=== PATIENT | male | born 1945 | race Caucasian/White ===

== ENCOUNTER 2018-09-14 09:37 | Emergency (ER) | payer MEDICARE, BC ==
--- NOTE | 2018-09-14 10:13 | EDM.PDOC ---
ED HPI GENERAL MEDICAL PROBLEM - General Time Seen by Provider: 09/14/18 10:00 Source of Information: Reports: Patient History Limitations: Reports: No Limitations - History of Present Illness INITIAL COMMENTS - FREE TEXT/NARRATIVE: Pt is a 72 year old male with PMH of diabetes, presenting to emergency room with c/o right elbow pain and swelling. According to patient he claims that he started having pain in the posterior aspect of the right elbow 2 days ago. the pain was constant dull achy type when it started,also he had noticed some swelling of the elbow. Today he claims that his elbow is flexed and cannot straighten it and cannot rotate his forearm or use his right hand because any activity causes pain in his elbow. He claims that he has history of gout, but does not take any medications. Pt is from [place] here on fishing trip. Onset: Gradual Onset Date: 09/12/18 Duration: Getting Worse Location: Reports: Upper Extremity, Right Quality: Reports: Ache Severity: Moderate Improves with: Reports: None Worsens with: Reports: None Associated Symptoms: Denies: Chest Pain, Cough, Fever/Chills, Headaches, Nausea/ Vomiting, Rash, Seizure, Shortness of Breath, Syncope, Weakness - Related Data Allergies Allergy/AdvReac Type Severity Reaction Status Date / Time No Known Allergies Allergy Verified 09/14/18 10:11 Home Meds: Home Meds Furosemide [Lasix] 20 mg PO DAILY 09/14/18 [History] Insulin Aspart [NovoLOG] 15 units SQ ACBREAKFAST 09/14/18 [History] Insulin Aspart [NovoLOG] 15 units SQ BEDTIME 09/14/18 [History] Insulin Degludec [Tresiba Flextouch U-100] 60 units SQ BEDTIME 09/14/18 [History ] metFORMIN HCl [Metformin HCl] 1,000 mg PO BID 09/14/18 [History] ED ROS GENERAL - Review of Systems Review Of Systems: See Below Constitutional: Denies: Fever, Chills, Malaise, Weakness, Night Sweats HEENT: Denies: Rhinitis, Throat Pain, Throat Swelling Respiratory: Denies: Cough, Sputum Cardiovascular: Denies: Chest Pain, Lightheadedness GI/Abdominal: Denies: Abdominal Pain, Nausea, Vomiting : Denies: Dysuria, Frequency Musculoskeletal: Reports: Joint Pain, Joint Swelling Skin: Denies: Bruising, Pruritis, Rash Neurological: Denies: Dizziness, Headache, Numbness, Tingling Psychiatric: Denies: Anxiety, Confusion, Cravings ED EXAM, GENERAL - Physical Exam Exam: See Below Exam Limited By: No Limitations General Appearance: Alert, WD/WN, Moderate Distress, Obese Eye Exam: Bilateral Eye: EOMI, PERRL Ears: Normal External Exam, Normal Canal, Hearing Grossly Normal, Normal TMs Ear Exam: Bilateral Ear: Auricle Normal, Canal Normal, TM normal Nose: Normal Inspection, Normal Mucosa, No Blood Throat/Mouth: Normal Inspection, Normal Lips, Normal Teeth, Normal Gums, Normal Oropharynx, Normal Voice, No Airway Compromise Head: Atraumatic, Normocephalic Neck: Normal Inspection, Supple, Non-Tender, Full Range of Motion Respiratory/Chest: No Respiratory Distress, Lungs Clear, Normal Breath Sounds, No Accessory Muscle Use, Chest Non-Tender Cardiovascular: Normal Peripheral Pulses, Regular Rate, Rhythm, No Edema, No Gallop, No JVD, No Murmur, No Rub Extremities: Other (right elbow: the forearm is in midflexed position. PAinful flexiona dn extension and limited ROM. cannot pronate or supinate the forearm. There is erythema around elbow and swelling. ) Course - Vital Signs Text/Narrative:: Pt did have Xray of the elbow. Which shows small osseous density at the radial head, also the is joint effusion with soft tissue swelling. I did get CBC which shows white count of 14 with 83% neutros, CRP is 34.7 , ESR s 34 and uric acid is 8.2. Apparently with sudden onset and quick progression of symptoms with elevated ESR , CRP and white count, I cannot rule out septic arthritis versus infective olecranon bursitis. I did contact Dr. Diggs the orthopedist harpooner at [facility] and discussed patient with him. Per his recommendation, I am sending patient to [facility] emergency room for further workup. I have contacted Dr. Jama the Er provider and discussed patient with him. I have not given him pain meds or antibiotics. His right arm is placed in arm sling. Also advised to stay NPO until evaluated by Dr. Guo at [facility]. PT understand and agrees with the plan. Now on discussing the recommendation with patient. He claims he has similar pain and swelling in his left elbow and had to be taken in for surgery, which appear like left elbow septic arthritis. Last Recorded V/S: Last Vital Signs Temp 98.6 F 09/14/18 10:00 Pulse 60 09/14/18 10:00 Resp 20 09/14/18 10:00 BP 156/81 H 09/14/18 10:00 Pulse Ox 96 09/14/18 10:00 - Orders/Labs/Meds Labs: Laboratory Tests 09/14/18 09/14/18 09/14/18 Range/Units 10:15 10:15 10:15 WBC 14.2 H (4.0-11.0) K/uL RBC 4.79 (4.50-6.50) M/uL Hgb 12.7 L (13.0-18.0) g/dL Hct 39.9 L (40.0-54.0) % MCV 83 (76-96) fL MCH 26.5 L (27.0-32.0) pg MCHC 31.8 (31.0-35.0) g/dL RDW 15.8 (11.0-16.0) % Plt Count 194 (150-400) K/uL MPV 10.8 H (6.0-10.0) fL Neut % (Auto) 82.9 H (45.0-70.0) % Lymph % (Auto) 6.9 L (20.0-40.0) % Graves % (Auto) 9.6 (3.0-10.0) % Eos % (Auto) 0.4 L (1.0-5.0) % Baso % (Auto) 0.2 (0.0-0.5) % Neut # (Auto) 11.79 H (2.00-7.50) K/uL Lymph # (Auto) 0.98 L (1.50-4.00) K/uL Graves # (Auto) 1.36 H (0.20-0.80) K/uL Eos # (Auto) 0.06 (0.04-0.40) K/uL Baso # (Auto) 0.03 (0.02-0.10) K/uL ESR 34 H (0-20) mm/hr Uric Acid 8.2 H (2.6-7.2) mg/dL C-Reactive Protein 34.7 H (0.0-3.0) mg/L Departure - Departure Time of Disposition: 12:40 Disposition: DC/Tfer to Other 70 Condition: Fair Clinical Impression: Septic arthritis of elbow, right - Discharge Information *PRESCRIPTION DRUG MONITORING PROGRAM REVIEWED*: Not Applicable *COPY OF PRESCRIPTION DRUG MONITORING REPORT IN PATIENT ISHAAN: Not Applicable Referrals: PCP,None [Primary Care Provider] - - Problem List & Annotations (1) Septic arthritis of elbow, right SNOMED Code(s): 098799649 Code(s): M00.9 - PYOGENIC ARTHRITIS, UNSPECIFIED Status: Acute Current Visit: Yes - Problem List Review Problem List Initiated/Reviewed/Updated: Yes - Assessment/Plan Assessment:: possible right elbow septic arthritis Plan: Pt did have Xray of the elbow. Which shows small osseous density at the radial head, also the is joint effusion with soft tissue swelling. I did get CBC which shows white count of 14 with 83% neutros, CRP is 34.7 , ESR s 34 and uric acid is 8.2. Apparently with sudden onset and quick progression of symptoms with elevated ESR , CRP and white count, I cannot rule out septic arthritis versus infective olecranon bursitis. I did contact Dr. Diggs the orthopedist harpooner at [facility] and discussed patient with him. Per his recommendation, I am sending patient to [facility] emergency room for further workup. I have contacted Dr. Jama the Er provider and discussed patient with him. I have not given him pain meds or antibiotics. His right arm is placed in arm sling. Also advised to stay NPO until evaluated by Dr. Guo at [facility]. PT understand and agrees with the plan. Now on discussing the recommendation with patient. He claims he has similar pain and swelling in his left elbow and had to be taken in for surgery, which appear like left elbow septic arthritis. Pt prefers to drive himself down to [facility].
--- NOTE | 2018-09-14 11:29 | CR ---
Date of Service: 09/14/18 Clinical Data: right elbow swelling RIGHT ELBOW: No priors. The radial head appears abnormal on both views and are suspicious for a mildly impacted radial head fracture. There is also small osseous density proximal to the head of the radius on an oblique view. I cannot exclude a small bony avulsion. There is a small olecranon spur. There is adjacent soft tissue swelling. Olecranon bursitis should be considered. There are positive anterior and posterior fat pad signs consistent with a joint effusion or hemarthrosis. No other abnormalities. [id number] [facility]
[2018-09-15] MEDS ORDERED: Metoprolol Tartrate 25 MG Tab ONE (14:57)
== END 2018-09-14 12:30 ==
LOC: LB.ED 09:37
DX: M00.9 Pyogenic arthritis, unspecified (principal); Z79.899 Other long term (current) drug therapy; Z79.4 Long term (current) use of insulin
CPT/HCPCS: 36415; 73080-RT; 84550; 85025; 85651; 86140; 99284-25